=== PATIENT | female | born 1975 | race Caucasian/White ===

== ENCOUNTER 2019-03-07 15:51 | Inpatient (IN) | payer BC ==
--- NOTE | 2019-03-07 16:27 | ED ---
Medical Screening - HPI Summary HPI Summary: Patient brought 945 from PCP due to noncompliance with medication. History of bipolar and psychosis. Patient states she does not know why she is here. Is alert and oriented and coherent. Patient denies any symptoms of pain, illness or injury. Denies EtOH or recreational drug use. - History of Current Complaint Stated Complaint: 945 Time Seen by Provider: 03/07/19 16:18 Severity: moderate PMH/Surg Hx/FS Hx/Imm Hx Endocrine/Hematology History: Denies: Hx Anemia, Hx Unexplained Bleeding Cardiovascular History: Denies: Hx Aneurysm, Hx Angina, Hx Angioplasty, Hx Auto Implanted Cardiovert Defib, Hx Cardiac Arrest, Hx Cardiomegaly, Hx Congenital Heart Disease, Hx Congestive Heart Failure, Hx Coronary Artery Disease, Hx Deep Vein Thrombosis, Hx Hypercholesterolemia, Hx Hypotension, Hx Hypertension, Hx Pacemaker/ICD, Hx Peripheral Vascular Disease, Hx Rheumatic Fever, Hx Syncope, Hx Valvular Heart Disease, Other Cardiovascular Problems/Disorders History: Denies: Hx Dialysis Sensory History: Reports: Hx Contacts or Glasses Opthamlomology History: Reports: Hx Contacts or Glasses Neurological History: Denies: Hx Dementia, Hx Developmental Delay, Hx Headaches, Hx Migraine, Hx Nerve Disease, Hx Seizures, Hx Spinal Cord Injury, Hx Transient Ischemic Attacks (TIA), Other Neuro Impairments/Disorders Psychiatric History: Reports: Hx Depression, Hx Inpatient Treatment, Hx Community Mental Health Tx, Hx Bipolar Disorder Denies: Hx Eating Disorder, Hx of Violent Episodes Against Others Infectious Disease History: Denies: Hx Clostridium Difficile, Hx Hepatitis, Hx Human Immunodeficiency Virus (HIV), Hx of Known/Suspected MRSA, Hx Shingles, Hx Tuberculosis, Hx Known/ Suspected VRE, Hx Known/Suspected VRSA, History Other Infectious Disease, Traveled Outside the [place] in Last 30 Days - Family History Known Family History: Positive: Non-Contributory - Social History Alcohol Use: Rare Substance Use Type: Reports: None Hx Tobacco Use: Yes Smoking Status (MU): Current Every Day Smoker Type: Cigarettes Review of Systems Constitutional: Negative Eyes: Negative ENT: Negative Cardiovascular: Negative Respiratory: Negative Gastrointestinal: Negative Genitourinary: Negative Musculoskeletal: Negative Skin: Negative Neurological: Negative Positive: Anxious All Other Systems Reviewed And Are Negative: Yes Physical Exam - Summary Physical Exam Summary: Alert and oriented 4. Calm and cooperative, though rambling in speech. Triage Information Reviewed: Yes Vital Signs Reviewed: Yes Appearance: Positive: Well-Appearing Skin: Positive: Warm Head/Face: Positive: Normal Head/Face Inspection Eyes: Positive: Normal ENT: Positive: Normal ENT inspection Neck: Positive: Supple Respiratory/Lung Sounds: Positive: Clear to Auscultation Cardiovascular: Positive: Normal Abdomen Description: Positive: Nontender Musculoskeletal: Positive: Normal Neurological: Positive: Normal Psychiatric: Positive: Normal AVPU Assessment: Alert - Yan Coma Scale Best Eye Response: 4 - Spontaneous Best Motor Response: 6 - Obeys Commands Best Verbal Response: 5 - Oriented Coma Scale Total: 15 Diagnostics - Laboratory Result Diagrams: 03/07/19 16:50 03/07/19 16:50 Lab Statement: Any lab studies that have been ordered have been reviewed, and results considered in the medical decision making process. Course/Dx - Course Course Of Treatment: Patient brought 945 from PCP due to noncompliance with medication. History of bipolar and psychosis. Patient states she does not know why she is here. Is alert and oriented and coherent. Patient denies any symptoms of pain, illness or injury. Denies EtOH or recreational drug use. Vital signs within normal limits. Labs unremarkable. Involuntary admit 9[address] for [address] Ross. - Diagnoses Provider Diagnoses: Bipolar 1 disorder Discharge ED - Sign-Out/Discharge Documenting (check all that apply): Patient Departure Patient Received Moderate/Deep Sedation with Procedure: No - Discharge Plan Condition: Stable [facility] [place] Disposition and Condition Condition: STABLE Disposition: [place] [facility] [place]
[2019-03-07 16:37] LABS: Urine Appearance Clear; Urine Bilirubin Negative (Negative); Urine Blood Negative (Negative); Urine Color Yellow; Urine Glucose Negative (Negative); Urine Ketones Trace (Negative); Urine Nitrite Negative (Negative); Urine Protein Negative (Negative); Urine Specific Gravity 1.018 (1.010-1.030); Urine Urobilinogen Negative (Negative)
[2019-03-07] MEDS: Nicotine* 2MG (FRUIT FLAVOR) GUM PO PRN ×3 (16:45→22:45)
[2019-03-07 16:54] LABS: ABS Eosinophils 0.1 10^3/ul (0-0.6); ABS Lymphocytes 1.9 10^3/ul (1.0-4.8); ABS Monocytes 0.6 10^3/ul (0-0.8); ABS Neutrophils 4.4 10^3/ul (1.5-7.7); Eosinophil % 1.1 %; Hematocrit 45 % (35-47); Hemoglobin 15.5 g/dL (12.0-16.0); Lymphocyte % 27.1 %; Mean Corpuscular HGB Conc 35 g/dL (31-36); Mean Corpuscular Hemoglobin 32 pg (27-31); Mean Corpuscular Volume 93 fL (80-97); Mean Platelet Volume 8.3 fL (7.4-10.4); Platelet Count 314 10^3/uL (150-450); Red Blood Count 4.82 10^6 /uL (3.70-4.87); Red Cell Distribution Width 15 % (10-15); White Blood Count 7.1 10^3/uL (3.5-10.8)
[2019-03-07 17:12] LABS: Urine Benzodiazepine Screen None Detected (None Detect); Urine Opiates Screen None Detected (None Detect)
[2019-03-07 17:12] LABS: ALT 20 U/L (7-52); AST 22 U/L (13-39); Albumin 4.6 g/dL (3.2-5.2); Albumin/Globulin Ratio 1.6 (1-3); Alkaline Phosphatase 56 U/L (34-104); Anion Gap 7 mmol/L (2-11); BUN/Creatinine Ratio 9.3 (8-20); Blood Urea Nitrogen 9 mg/dL (6-24); CO2 Carbon Dioxide 27 mmol/L (22-32); Calcium 9.6 mg/dL (8.6-10.3); Chloride 102 mmol/L (101-111); EGFR African American 75.5 (>60); EGFR Non-African American 62.4 (>60); Globulin 2.8 g/dL (2-4); Glucose 106 mg/dL (70-100); Potassium 3.8 mmol/L (3.5-5.0); Sodium 136 mmol/L (135-145); Total Protein 7.4 g/dL (6.4-8.9)
[2019-03-07 17:29] LABS: Acetaminophen < 15 mcg/mL; Alcohol < 10 mg/dL (<10); Salicylate < 2.50 mg/dL (<30)
[2019-03-07] MEDS ORDERED: Acetaminophen TAB* 325 MG PO PRN (20:50)
[2019-03-07] MEDS ORDERED: Al Hydrox/Mg Hydrox/Simet LIQ* 30 ML UDC PO PRN (20:53)
[2019-03-07] MEDS: Lithium Carbonate TAB* 300 MG PO SCH (21:18)
[2019-03-07] MEDS: OLANzapine TAB* 5 MG PO SCH (21:18)
[2019-03-08] MEDS ORDERED: chlorproMAZINE TAB* 50 MG Q6H PRN AGITATION PO (01:55)
[2019-03-08] MEDS: Nicotine* 2MG (FRUIT FLAVOR) GUM PO PRN ×4 (08:58→21:12)
[2019-03-08] MEDS: Vitamin THERAPEUTIC TAB PO SCH (08:59)
[2019-03-08] MEDS: Lithium Carbonate TAB* 300 MG PO SCH ×2 (08:59→21:12)
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
[2019-03-08] MEDS: OLANzapine TAB* 5 MG PO SCH (21:13)
[2019-03-09] MEDS: Nicotine* 2MG (FRUIT FLAVOR) GUM PO PRN ×4 (09:45→22:19)
[2019-03-09] MEDS: Lithium Carbonate TAB* 300 MG PO SCH ×2 (09:46→21:30)
[2019-03-09] MEDS: Vitamin THERAPEUTIC TAB PO SCH (09:46)
--- NOTE | 2019-03-09 12:50 | PN ---
BSU: Group Therapy Note - Service Type Service Type: [id number] Group Psychotherapy - CBT Group Note: Jayla attended group this morning and was engaging in conversation, but continues to scribble in notebook during group, but reacts to questions appropriately and demonstrates appropriately variable affect.
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
[2019-03-09] MEDS: Vitamin B Complex TAB PO SCH (15:17)
--- NOTE | 2019-03-09 16:32 | PN ---
BSU: Group Therapy Note - Service Type Service Type: [id number] Group Psychotherapy - Medication Education Group: Patient joined group and was intermittently in room. Patient asked questions that were not particularly on topic. Patient minimally receptive to redirection when monopolizing group and would abruptly leave.
[2019-03-09] MEDS: OLANzapine TAB* 5 MG PO SCH (21:30)
[2019-03-10 08:54] LABS: HDL Cholesterol 70.4 mg/dL
[2019-03-10] MEDS: Lithium Carbonate TAB* 300 MG PO SCH ×2 (09:35→21:22)
[2019-03-10] MEDS: Nicotine* 2MG (FRUIT FLAVOR) GUM PO PRN ×4 (09:35→21:24)
[2019-03-10] MEDS: Vitamin B Complex TAB PO SCH (09:35)
[2019-03-10] MEDS: Vitamin THERAPEUTIC TAB PO SCH (09:37)
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
[2019-03-10] MEDS: OLANzapine TAB* 5 MG PO SCH (21:22)
[2019-03-11] MEDS: Nicotine* 2MG (FRUIT FLAVOR) GUM PO PRN ×6 (08:58→22:48)
[2019-03-11] MEDS: Vitamin B Complex TAB PO SCH (08:58)
[2019-03-11] MEDS: Lithium Carbonate TAB* 300 MG PO SCH ×2 (08:58→22:02)
--- NOTE | 2019-03-11 11:42 | PN ---
BSU: Group Therapy Note - Service Type Service Type: [id number] Group Psychotherapy - Cognitive Behavioral Group Therapy ( CBT):Patient was attentive and participatory in CBT programming this morning, and remained in good behavioral control. Patient expressed positive insights regarding relevant treatment interventions and goals.
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
[2019-03-11] MEDS: OLANzapine TAB* 5 MG PO SCH (22:02)
[2019-03-12] MEDS: Lithium Carbonate TAB* 300 MG PO SCH ×2 (09:09→21:50)
[2019-03-12] MEDS: Vitamin B Complex TAB PO SCH (09:10)
[2019-03-12] MEDS: Nicotine* 2MG (FRUIT FLAVOR) GUM PO PRN ×4 (09:11→22:36)
[2019-03-12] MEDS: OLANzapine TAB* 5 MG PO SCH (21:50)
[2019-03-13] MEDS: Lithium Carbonate TAB* 300 MG PO SCH ×2 (09:07→20:52)
[2019-03-13] MEDS: Vitamin B Complex TAB PO SCH (09:07)
[2019-03-13] MEDS: Nicotine* 2MG (FRUIT FLAVOR) GUM PO PRN ×5 (09:08→23:28)
[2019-03-13] MEDS: OLANzapine TAB* 5 MG PO SCH (20:52)
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
[2019-03-14] MEDS: Lithium Carbonate TAB* 300 MG PO SCH ×2 (09:29→21:04)
[2019-03-14] MEDS: Vitamin B Complex TAB PO SCH (09:29)
[2019-03-14] MEDS: Nicotine* 2MG (FRUIT FLAVOR) GUM PO PRN ×6 (09:30→23:20)
[2019-03-14 09:58] VITALS: BP 115/67
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
[2019-03-14] MEDS: OLANzapine TAB* 5 MG PO SCH (21:04)
[2019-03-15] MEDS: Vitamin B Complex TAB PO SCH (09:22)
[2019-03-15] MEDS: Lithium Carbonate TAB* 300 MG PO SCH (09:22)
[2019-03-15] MEDS: Nicotine* 2MG (FRUIT FLAVOR) GUM PO PRN ×2 (09:22→12:42)
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
== END 2019-03-15 13:18 | disposition home or self-care (01) | DRG 753 ==
LOC: ED 15:51 → BSU 20:49
PROVIDERS: ADMIT Psychiatry & Neurology Psychiatry; ATTEND Psychiatry & Neurology Psychiatry
PROC: GZHZZZZ Group Psychotherapy (ICD-10-PCS; principal; 2019-03-11)
DX: F31.2 Bipolar disorder, current episode manic severe with psychotic features (principal); F17.210 Nicotine dependence, cigarettes, uncomplicated; R45.850 Homicidal ideations; Z72.89 Other problems related to lifestyle; Z88.8 Allergy status to other drugs, medicaments and biological substances
CPT/HCPCS: 36415; 80053; 80061; 80307; 80320; 80329; 81003; 83036; 84443; 85025; 90853; 99222; 99231; 99232; 99238; 99284; A9270-GY; G0480

== ENCOUNTER 2022-01-26 18:14 | Inpatient (IN) ==
[2022-01-26] MEDS ORDERED: Midazolam 2 mg/2 ml VIAL 1 mg/ml 2 ml VIAL (2 mg) IV SLOW PU ONE (18:19)
[2022-01-26] MEDS ORDERED: Droperidol 5 MG/2 ML 2 ML VIAL IM ONE (18:19)
[2022-01-26] MEDS ORDERED: Droperidol 5 MG/2 ML 2 ML VIAL ONE (18:22)
[2022-01-26] MEDS ORDERED: Midazolam 2 mg/2 ml VIAL 1 mg/ml 2 ml VIAL (2 mg) ONE (18:22)
[2022-01-26 19:14] LABS: ABS Lymphocytes 1.1 10^3/ul (1.0-4.8); ABS Monocytes 0.3 10^3/ul (0-0.8); ABS Neutrophils 3.9 10^3/ul (1.5-7.7); Eosinophil % 0.1 %; Hematocrit 40 % (35-47); Hemoglobin 13.1 g/dL (12.0-16.0); Lymphocyte % 21.5 %; Mean Corpuscular HGB Conc 33 g/dL (31-36); Mean Corpuscular Hemoglobin 32 pg (27-31); Mean Corpuscular Volume 97 fL (80-97); Mean Platelet Volume 7.2 fL (7.4-10.4); Nucleated Red Blood Cells % 0.1; Platelet Count 303 10^3/uL (150-450); Red Blood Count 4.11 10^6 /uL (3.70-4.87); Red Cell Distribution Width 15 % (10-15); White Blood Count 5.3 10^3/uL (3.5-10.8)
[2022-01-26 19:44] LABS: ALT 15 U/L (7-52); AST 27 U/L (13-39); Acetaminophen < 15 mcg/mL; Albumin 4.2 g/dL (3.2-5.2); Albumin/Globulin Ratio 1.7 (1-3); Alcohol, S 259 mg/dL (<13); Alkaline Phosphatase 59 U/L (35-149); Anion Gap 16 mmol/L (2-11); Blood Urea Nitrogen 12 mg/dL (6-24); CO2 Carbon Dioxide 18 mmol/L (22-32); Calcium 8.9 mg/dL (8.6-10.3); Chloride 107 mmol/L (101-111); Globulin 2.5 g/dL (2-4); Lithium 0.28 mmol/L (0.6-1.2); Potassium 3.6 mmol/L (3.5-5.0); Salicylate < 2.50 mg/dL (<30); Sodium 141 mmol/L (135-145); Total Protein 6.7 g/dL (6.4-8.9); eGFR CKD-EPI 85.5 (>60)
[2022-01-26 19:49] LABS: Glucose 49 mg/dL (70-100)
[2022-01-26 19:51] LABS: HCG Pregnancy 0.98 mIU/mL
[2022-01-26] MEDS ORDERED: Dextrose 50% Syringe 50 ml 25 GM/50 ML SYRINGE IV PUSH ONE (20:00)
[2022-01-26 22:58] LABS: Urine Appearance Clear; Urine Bilirubin Negative (Negative); Urine Blood Negative (Negative); Urine Color Yellow; Urine Glucose 1+ (250mg/dL) (Negative); Urine Ketones 1+ (15mg/dL) (Negative); Urine Nitrite Negative (Negative); Urine Protein Negative (Negative); Urine Specific Gravity 1.016 (1.002-1.030); Urine Urobilinogen 0.2 (Negative) (Negative)
[2022-01-26 23:18] LABS: Urine Benzodiazepine Screen Presumptive Positive (None Detect); Urine Cannabinoids Screen None Detected (None Detect); Urine Opiates Screen None Detected (None Detect)
[2022-01-27] MEDS ORDERED: Nicotine PATCH 21 MG/24 HR PATCH TRANSDERM ONE (03:05)
[2022-01-27] MEDS ORDERED: Al Hydrox/Mg Hydrox/Simet LIQ 30 ML UDC PO PRN (05:49)
[2022-01-27] MEDS: Vitamin THERAPEUTIC TAB PO SCH (09:23)
[2022-01-27] MEDS: Nicotine PATCH 14 MG/24 HR PATCH TRANSDERM SCH (09:23)
[2022-01-27] MEDS: Nicotine GUM 2MG FRUIT FLAVOR PO PRN (18:36)
[2022-01-28] MEDS: Vitamin THERAPEUTIC TAB PO SCH (08:14)
[2022-01-28] MEDS: Nicotine GUM 2MG FRUIT FLAVOR PO PRN ×4 (08:14→20:59)
[2022-01-28] MEDS: Nicotine PATCH 14 MG/24 HR PATCH TRANSDERM SCH (10:48)
[2022-01-28] MEDS ORDERED: OLANZapine 5 mg TAB *ODT PO SCH (21:00)
[2022-01-29] MEDS: Nicotine GUM 2MG FRUIT FLAVOR PO PRN ×3 (04:22→12:25)
[2022-01-29] MEDS: Vitamin THERAPEUTIC TAB PO SCH (07:52)
[2022-01-29] MEDS: Nicotine PATCH 14 MG/24 HR PATCH TRANSDERM SCH (07:54)
[2022-01-30] MEDS: Nicotine GUM 2MG FRUIT FLAVOR PO PRN ×2 (09:56→12:42)
[2022-01-30] MEDS: Vitamin THERAPEUTIC TAB PO SCH (09:56)
[2022-01-30] MEDS: Nicotine PATCH 14 MG/24 HR PATCH TRANSDERM SCH (09:57)
[2022-01-31] MEDS: Nicotine GUM 2MG FRUIT FLAVOR PO PRN ×3 (08:42→17:53)
[2022-01-31] MEDS: Vitamin THERAPEUTIC TAB PO SCH (09:15)
[2022-01-31] MEDS: Nicotine PATCH 14 MG/24 HR PATCH TRANSDERM SCH (09:15)
[2022-02-01] MEDS: Nicotine PATCH 14 MG/24 HR PATCH TRANSDERM SCH (09:05)
[2022-02-01] MEDS: Vitamin THERAPEUTIC TAB PO SCH (09:05)
[2022-02-01] MEDS: Nicotine GUM 2MG FRUIT FLAVOR PO PRN ×2 (09:07→20:16)
[2022-02-02] MEDS: Nicotine PATCH 14 MG/24 HR PATCH TRANSDERM SCH (07:57)
[2022-02-02] MEDS: Vitamin THERAPEUTIC TAB PO SCH (07:57)
[2022-02-02] MEDS: Nicotine GUM 2MG FRUIT FLAVOR PO PRN (12:48)
[2022-02-03 07:31] VITALS: BP 136/87
[2022-02-03] MEDS: Vitamin THERAPEUTIC TAB PO SCH (09:13)
[2022-02-03] MEDS: Nicotine PATCH 14 MG/24 HR PATCH TRANSDERM SCH (09:13)
[2022-02-03] MEDS: Nicotine GUM 2MG FRUIT FLAVOR PO PRN (09:13)
== END 2022-02-03 13:17 | disposition home or self-care (01) | DRG 753 ==
LOC: ED 18:14 → BSU 01-27 04:20
PROVIDERS: ADMIT Psychiatry & Neurology Psychiatry; ATTEND Psychiatry & Neurology Psychiatry